=== PATIENT | female | born 1970 | race Caucasian/White ===

== ENCOUNTER → 2018-02-22 08:38 | Outpatient (CLI) | payer OTHER ==
[2016-03-17 09:21] VITALS: BMI 22.2
[~2018-02-22 08:38] MED LIST: IBUPROFEN600 MG PO; PERCOCET 5-3251 TAB PO
== END | disposition home or self-care (01) ==
LOC: D.US 08:38
DX: R11.2 Nausea with vomiting, unspecified (principal); R10.9 Unspecified abdominal pain